=== PATIENT | female | born 1945 | race Caucasian/White ===

== ENCOUNTER → 2018-12-06 | Outpatient (CLI) | payer MEDICARE, OTHER ==
[~2018-12-06] MED LIST: ACEBUTCAFT PO; ALBU90OI61 INH; AMLO10 PO; ASPI325 PO; CEPH500 PO; CODACE30 PO; ERGCAF PO; LEVSOD150 PO; LEVSOD175 PO; NAPR250 PO; OLME20-12. PO; OLME40 PO; OXYB5ER PO; TRAACE PO; TRIA80TC TOP
[2018-12-06 15:27] LABS: Creatinine, Urine Random 74.4 mg/dL (27.00-270.00); Protein, Urine Random 5.4 mg/dL (0.0-11.9)
[2018-12-06 17:01] LABS: Albumin, Blood 2.9 g/dL (3.4-5.0); Anion Gap 4 mmol/L (6-16); Blood Urea Nitrogen 9 mg/dL (8-24); CO2, Blood 28 mmol/L (21-32); Calcium, Blood 8.8 mg/dL (8.5-10.1); Chloride, Blood 111 mmol/L (98-108); Glomerular Filtration Rate >60 (60-); Glucose, Blood 101 mg/dL (70-99); Magnesium, Blood 2.2 mg/dL (1.6-2.4); Phosphorus, Blood 3.8 mg/dL (2.5-4.9); Potassium, Blood 3.6 mmol/L (3.5-5.5); Sodium, Blood 143 mmol/L (136-145)
== END | disposition home or self-care (01) ==
LOC: LAB SHORT 14:22 → LAB UCHC 14:22
PROVIDERS: Internal Medicine
DX: N18.3 Chronic kidney disease, stage 3 (moderate) (principal); E87.6 Hypokalemia
CPT/HCPCS: 36415; 80069; 82088; 82306; 82570; 83735; 83970; 84156; 84244

== ENCOUNTER 2021-02-10 06:56 | Day surgery (SDC) | payer OTHER ==
[~2021-02-10] VITALS: Ht 157.5 cm; Wt 138.9 kg
[~2021-02-10 06:56] MED LIST changes: +LOSARTAN POTAS100 M1
== END 2021-02-10 08:57 | disposition home or self-care (01) ==
LOC: ORSCSDS 06:56
PROVIDERS: Internal Medicine Gastroenterology
PROC: 0DB48ZX Excision of Esophagogastric Junction, Via Natural or Artificial Opening Endoscopic, Diagnostic (ICD-10-PCS; principal; 2021-02-10 08:00)
PROC: 0DB98ZX Excision of Duodenum, Via Natural or Artificial Opening Endoscopic, Diagnostic (ICD-10-PCS; principal; 2021-02-10 08:00)
PROC: 0DB58ZX Excision of Esophagus, Via Natural or Artificial Opening Endoscopic, Diagnostic (ICD-10-PCS; principal; 2021-02-10 08:00)
PROC: 0DB68ZX Excision of Stomach, Via Natural or Artificial Opening Endoscopic, Diagnostic (ICD-10-PCS; principal; 2021-02-10 08:00)
PROC: 0D758ZZ Dilation of Esophagus, Via Natural or Artificial Opening Endoscopic (ICD-10-PCS; principal; 2021-02-10 08:00)
DX: R13.14 Dysphagia, pharyngoesophageal phase (principal); K29.70 Gastritis, unspecified, without bleeding; I48.91 Unspecified atrial fibrillation; K20.90 Esophagitis, unspecified without bleeding; N18.30 Chronic kidney disease, stage 3 unspecified; K21.9 Gastro-esophageal reflux disease without esophagitis; G47.33 Obstructive sleep apnea (adult) (pediatric); Z68.43 Body mass index [BMI] 50.0-59.9, adult; E66.9 Obesity, unspecified; E66.01 Morbid (severe) obesity due to excess calories; Z79.82 Long term (current) use of aspirin; Z79.899 Other long term (current) drug therapy
CPT/HCPCS: 88305; 88342; C1726; J2704; J7120

== ENCOUNTER → 2021-07-30 | Outpatient (CLI) | payer OTHER | LOC: LAB SHORT 15:44 | DX: E03.9 Hypothyroidism, unspecified (principal) | CPT/HCPCS: 84443 ==

== ENCOUNTER → 2022-09-03 | Outpatient (CLI) | payer OTHER ==
[2022-09-03 16:03] LABS: Bun/Creatinine Ratio 13.9 (12.0-20.0); Calcium, Blood 9.6 mg/dL (8.5-10.1); Creatinine, Blood 1.15 mg/dL (0.40-1.00); Potassium, Blood 3.1 mmol/L (3.5-5.5)
== END | disposition home or self-care (01) ==
LOC: LAB 13:55 → LAB SHORT 13:55
PROVIDERS: Family Medicine
DX: I10 Essential (primary) hypertension (principal)
CPT/HCPCS: 36415; 80048

== ENCOUNTER 2024-08-08 22:21 | Emergency (ER) | payer OTHER ==
[~2024-08-08] VITALS: Ht 157.5 cm; Wt 122.5 kg
[~2024-08-08 22:21] MED LIST changes: +ALBU90OI INH; +Benadryl25 MG PO; +DOCUSATE SODIUM PO; +FERSU300 PO; +FURO20 PO; +GABA100 PO; +KLOR-CON 1010 ME9 PO; +LEVOTHYROXINE200 MCG PO; -LEVSOD150 PO; -LOSARTAN POTAS100 M1; +LOSARTAN POTAS100 M1 PO; +LOSARTAN-HCTZ1 EAC5 PO; +POTA10T PO; +[UNRECOGNIZED DRUG - MIXTURE] PO
[2024-08-08 22:57] VITALS: BP 179/108
== END 2024-08-09 05:47 | disposition home or self-care (01) ==
LOC: ER 22:21
DX: M25.512 Pain in left shoulder (principal); M25.572 Pain in left ankle and joints of left foot; M79.641 Pain in right hand; E03.9 Hypothyroidism, unspecified; I48.91 Unspecified atrial fibrillation; I10 Essential (primary) hypertension; Z88.8 Allergy status to other drugs, medicaments and biological substances; Z88.6 Allergy status to analgesic agent; Z88.2 Allergy status to sulfonamides; Z88.1 Allergy status to other antibiotic agents; Z79.890 Hormone replacement therapy; Z79.899 Other long term (current) drug therapy; W01.198A Fall on same level from slipping, tripping and stumbling with subsequent striking against other object, initial encounter
CPT/HCPCS: 73030; 73130; 73590; 73610; 73700; 99284-25